=== PATIENT | male | born 1970 | race Caucasian/White ===

== ENCOUNTER → 2023-11-25 09:19 | Outpatient (REF) | payer BC, SELFPAY ==
[2023-11-25 12:40] LABS: C-Reactive Protein < 5.00 mg/L (0.0-10.00)
[2023-11-25 13:11] LABS: Cortisol, Random 12.1 ug/dl; PSA, Total - Screen 1.91 ng/ml (0.0-4.0)
[2023-11-25 13:30] LABS: Vitamin B12 673 pg/ml (239-931)
[2023-11-25 13:49] LABS: Glycohemoglobin (HgbA1c) 5.3 % (4.0-5.6)
[2023-11-26 20:39] LABS: % Free Testosterone 2.4 % (1.6-2.9); DHEA Sulfate 285 ug/dL (44-331); Free Testosterone 68 pg/mL (47-244); Sex Hormone Binding Globulin 17 nmol/L (19-76); Total Testosterone 283 ng/dL (300-890)
== END ==
LOC: HWLAB 09:19
PROVIDERS: ATTENDING PHYSICIAN Internal Medicine; FAMILY PHYSICIAN Student in an Organized Health Care Education/Training Program
DX: E55.9 Vitamin D deficiency, unspecified (principal); E08.65 Diabetes mellitus due to underlying condition with hyperglycemia; E78.5 Hyperlipidemia, unspecified; D51.0 Vitamin B12 deficiency anemia due to intrinsic factor deficiency
CPT/HCPCS: 36415; 82306; 82533; 82607; 82627; 83036; 84270; 84402; 84403; 86140; G0103

== ENCOUNTER → 2024-12-20 08:52 | Outpatient (REF) | payer BC, SELFPAY | LOC: HWRAD 08:52 | PROVIDERS: ATTENDING PHYSICIAN Student in an Organized Health Care Education/Training Program | DX: R05.1 Acute cough (principal) | CPT/HCPCS: 71046 ==